=== PATIENT | female | born 1985 | race Caucasian/White ===

== ENCOUNTER 2016-11-20 09:40 | Emergency (ER) | payer SELFPAY ==
[~2016-11-20] VITALS: Ht 170.2 cm; Wt 59.0 kg
[2016-11-20] MEDS ORDERED: HALOPERIDOL LACTATE INJ 5 MG/ML VIAL IM ONE (10:00)
[2016-11-20] MEDS ORDERED: LORAZEPAM INJ 2 MG/ML VIAL IM ONE (10:00)
[2016-11-20] MEDS ORDERED: HALOPERIDOL LACTATE INJ 5 MG/ML VIAL ONE (10:07)
[2016-11-20] MEDS ORDERED: LORAZEPAM INJ 2 MG/ML VIAL ONE (10:07)
[2016-11-20 10:14] LABS: CALCIUM, SERUM 9.1 mg/dL (8.5-10.1); CARBON DIOXIDE 26 mmol/L (21-32); CHLORIDE 107 mmol/L (98-107); CREATININE 0.9 mg/dL (0.6-1.3); GLUCOSE 85 mg/dL (74-106); POTASSIUM 3.9 mmol/L (3.5-5.1); SODIUM SERUM 142 mmol/L (136-145); UREA NITROGEN, BLOOD 9 mg/dL (7-18)
[2016-11-20 10:16] LABS: ALCOHOL, BLOOD < 3 mg/dL (0-0)
[2016-11-20 10:20] LABS: BASOPHILS % (AUTO) 2.4 % (0.0-2.0); EOSINOPHILS % (AUTO) 0.7 % (0.0-6.0); HEMATOCRIT 42 % (33-45); HEMOGLOBIN 13.6 g/dL (11.5-14.8); LYMPHOCYTES % (AUTO) 29.5 % (20.0-44.0); MEAN CORPUSCULAR HEMOGLOBIN 28 PG (26.0-33.0); MEAN CORPUSCULAR HGB CONC 32 g/dl (31.0-36.0); MEAN CORPUSCULAR VOLUME 88 fL (82-100); MONOCYTES % (AUTO) 5.6 % (2.0-12.0); NEUTROPHILS % (AUTO) 61.8 % (43.0-81.0); PLATELET COUNT (AUTO) 361 /CMM (150-450); RDW COEFFICIENT OF VARIATION 13.7 (11.5-15.0); RED BLOOD CELL COUNT(AUTO) 4.78 MIL/uL (4.0-5.2); WHITE BLOOD COUNT (AUTO) 10.4 K/uL (4.3-11.0)
--- NOTE | 2016-11-20 11:00 | NUR ---
assume pt care. sleeping. on monitor w/ stable vitals. will continue to monitor.
--- NOTE | 2016-11-20 11:05 | NUR ---
RESTRAINTS DISCONTINUED. PT IS SLEEPING. STABLE VITALS. WILL MONITOR.
--- NOTE | 2016-11-20 11:20 | NUR ---
PT SLEEPING, UNABLE TO COLLECT URINE SAMPLE AT THIS TIME.
[2016-11-20 11:22] LABS: BAND % (MANUAL) 1 % (0.0-5.0); LYMPHOCYTES % (MANUAL) 31 % (16-48); MONOCYTES % (MANUAL) 5 % (0-11.0); NEUTROPHILS % (MANUAL) 63 (42-76)
--- NOTE | 2016-11-20 12:54 | NUR ---
CALLED [employer] ETA OF 1HR WAS GIVEN.
--- NOTE | 2016-11-20 14:40 | NUR ---
KATH RN AT BEDSIDE FOR EVAL.
--- NOTE | 2016-11-20 17:53 | NUR ---
PT IS AWAKE, AAOX3. AMBULATORY W/ STEADY GAIT. D/C IN STABLE CONDITION.
[2016-11-20 17:55] VITALS: BP 124/62
== END 2016-11-20 17:56 | disposition home or self-care (01) ==
LOC: ER 09:44
DX: F23 Brief psychotic disorder (principal); R51 Headache
CPT/HCPCS: 36415; 70450-TC; 80048-TC; 80305; 84703-TC; 85025-TC; A4606; G0480; J1630; J2060; Z7610